=== PATIENT | male | born 1990 | race Caucasian/White ===

== ENCOUNTER 2016-08-01 15:44 | Emergency (ER) | payer BC, OTHER ==
[2016-08-01 16:33] VITALS: BP 134/72
[2016-08-01] MEDS ORDERED: Ibuprofen TAB* 600 MG PO ONE (16:44)
--- NOTE | 2016-08-01 17:07 | UC ---
HPI Febrile Illness - HPI Summary HPI Summary: Patient has had a fever, fatique, chills for the past few days, c/o sore throat , difficulty urinating. dry mouth. - History of Current Complaint Chief Complaint: UCHeadache Time Seen by Provider: 08/01/16 16:47 Hx Obtained From: Patient Onset/Duration: Started Days Ago, Worse Since - the start of symtpoms Timing: Constant Initial Severity: Mild Current Severity: Severe Associated Signs and Symptoms: Arthralgia, Cough, Dizziness, Dysuria, Myalgia, Sore Throat - Allergy/Home Medications Allergies/Adverse Reactions: Allergies Allergy/AdvReac Type Severity Reaction Status Date / Time No Known Allergies Allergy Verified 08/01/16 16:27 Home Medications: Home Medications Ascorbic Acid TAB* [Vitamin C TAB*] 1,000 mg PO DAILY 08/01/16 [History Confirmed 08/01/16] Ibuprofen TAB* [Advil TAB*] 400 mg PO Q6H PRN 08/01/16 [History Confirmed ] [id number] [Nyquil Severe Cold/Flu 5-6.25-10-325 mg/15Ml] 1 liq PO Q6H PRN 08/01/16 [History Confirmed 08/01/16] PMH/Surg Hx/FS Hx/Imm Hx Previously Healthy: Yes Infectious Disease History: No Infectious Disease History: Denies: Traveled Outside the [place] in Last 30 Days - Social History Alcohol Use: None Substance Use Type: Reports: None Smoking Status (MU): Never Smoked Tobacco Review of Systems Constitutional: Fever, Chills, Fatigue Skin: Negative Eyes: Eye Redness ENT: Sore Throat Respiratory: Cough Cardiovascular: Negative Gastrointestinal: Negative Genitourinary: Dysuria Motor: Negative Neurovascular: Negative Musculoskeletal: Arthralgia, Myalgia Neurological: Headache Psychological: Negative All Other Systems Reviewed And Are Negative: Yes Physical Exam Triage Information Reviewed: Yes Appearance: Well-Nourished, Ill-Appearing, Pain Distress Vital Signs: Initial Vital Signs Temp 102.5 F 08/01/16 16:28 Pulse 103 08/01/16 16:28 Resp 20 08/01/16 16:28 BP 134/72 08/01/16 16:28 Pulse Ox 98 08/01/16 16:28 Vital Signs Reviewed: Yes Eye Exam: Normal Eyes: Positive: Conjunctiva Inflamed ENT: Positive: Pharyngeal erythema, Nasal drainage, TM bulging, Tonsillar swelling, Other: - white film over tongue and on the side of oral mucosa Dental Exam: Normal Neck exam: Normal Neck: Positive: Supple, Nontender, Enlarged Nodes @ - bilateral cervical Respiratory Exam: Normal Respiratory: Positive: Chest non-tender, Lungs clear, Normal breath sounds Cardiovascular Exam: Normal Cardiovascular: Positive: RRR, No Murmur, Pulses Normal Abdominal Exam: Normal Abdomen Description: Positive: Nontender, No Organomegaly, Soft Bowel Sounds: Positive: Present Musculoskeletal Exam: Normal Musculoskeletal: Positive: Strength Intact, ROM Intact, No Edema Neurological Exam: Normal Neurological: Positive: Alert, Muscle Tone Normal Psychological Exam: Normal Skin: Positive: Other - dry, flaked, lips are peeling. Course/Dx - Course Course Of Treatment: hx obtained, exam performed, meds reviewed, rapid strep neg , rapid flu, UA, given Ibuprofen for fever. unable to locate the source of infection at this time, will send to ER for further workup. - Febrile Illness Differential Diagnoses: Abd. Infection, Fever of Unknown Origin, GI Disease, Meningitis, Sepsis, Viremia, Other: - prostatitis - Diagnoses Clinic Provider Diagnoses: fever. weakness. dysuria - Provider Notifications Discussed Patient Care With: Gabe Sparks NP Instructed by Provider To: MD Will See In ED Discharge - Discharge Plan Condition: Stable Disposition: [facility]
== END 2016-08-01 17:33 | disposition left against medical advice (07) ==
LOC: UCCORT 15:44
DX: R50.9 Fever, unspecified (principal); R53.1 Weakness; R30.0 Dysuria
CPT/HCPCS: 81003; 87502; 87651; 99203; A9270-GY; G0463